=== PATIENT | female | born 1940 | race Hispanic/Latino ===

== ENCOUNTER 2017-09-15 23:26 | Observation (INO) | payer OTHER ==
[2017-09-16] MEDS ORDERED: cloNIDine HCl 0.1 MG TAB ONE (01:06)
[2017-09-16 01:45] LABS: Absolute Monocytes 0.9 K/uL (0.1-1.3); Absolute Neutrophil 7.6 K/uL (1.8-8.0); Basophils % 0.6 % (0-1.3); Eosinophils % 0.2 % (0-4.4); Hematocrit 44.4 % (36.0-45.0); Lymphocytes % 18.9 % (15.3-44.8); MCH 32.5 pg (27.0-35.0); MPV 10.7 fL (7.6-11.3); Monocytes % 8.8 % (3.3-12.3); RBC Red Blood Cell Count 4.58 M/uL (3.86-4.86)
[2017-09-16 02:29] LABS: Urine Blood TRACE (NEG); Urine Glucose NEGATIVE (NEG); Urine Protein 2+ (NEG)
[2017-09-16 03:32] LABS: Potassium 3.8 mEq/L (3.6-5.0)
[2017-09-16 03:35] LABS: Bilirubin Total 0.9 mg/dL (0.3-1.2); Protein, Total 7.4 g/dL (6.0-8.3)
[2017-09-16] MEDS ORDERED: ASPIRIN 325 MG TAB ONE (03:56)
[2017-09-16] MEDS ORDERED: HEPARIN 5000 UNIT/ML 1 ML VIAL ONE (04:03)
[2017-09-16] MEDS ORDERED: HEPARIN/D5W 25,000 UNIT/500 ML BAG IV ONE (04:03)
--- NOTE | 2017-09-16 04:08 | EDPHYS ---
Physician Documentation [facility] Name: Yumiko Joe Age: 77 yrs Sex: Female : 1940 Arrival Date: 09/15/2017 Time: 23:36 Bed 13 Private MD: ED Physician Kal Vamra HPI: 09/16 03:48 This 77 yrs old Female presents to ER via EMS with complaints of High Blood ps1 Pressure. 03:48 The patient has elevated blood pressure and discovered this at home. pt has long ps1 standing history of hypertension. Has clonidine that she is not taking from her doctor in the [place] and losartan 20mg bid from another doctor in [place]. She has not been feeling well over the last couple of days and started having intermittent chest pain and fatigue. EMS was called when she wasn't feeling well earlier and looked pale and diaphoretic. They stated that she was hypertensive in 210's systolic. . Historical: - Allergies: 09/15 23:40 No Known Allergies; bs1 - Home Meds: 23:40 losartan 50 mg oral tab 1 tab 2 times per day [Active]; bs1 - PMHx: 23:40 high blood pressure; bs1 - PSHx: 23:40 biopsy of cyst; bs1 - Immunization history:: Adult Immunizations up to date. - Social history:: Smoking status: Patient/guardian denies using tobacco. - Ebola Screening: : Patient reports travel to an Ebola-affected area in the 21 days before illness onset. Patient reports to have traveled to [place] 1 1/2 weeks ago. ROS: 09/16 03:50 Constitutional: Negative for fever, chills, and weight loss, Eyes: Negative for injury, ps1 pain, redness, and discharge, Neck: Negative for injury, pain, and swelling, Cardiovascular: Negative for chest pain, palpitations, and edema, Respiratory: Negative for shortness of breath, cough, wheezing, and pleuritic chest pain, Abdomen/GI: Negative for abdominal pain, nausea, vomiting, diarrhea, and constipation, MS/Extremity: Negative for injury and deformity, Skin: Negative for injury, rash, and discoloration, Neuro: Negative for headache, weakness, numbness, tingling, and seizure. Exam: 03:50 Constitutional: This is a well developed, well nourished patient who is awake, alert, ps1 and in no acute distress. Head/Face: Normocephalic, atraumatic. Eyes: Pupils equal round and reactive to light, extra-ocular motions intact. Lids and lashes normal. Conjunctiva and sclera are non-icteric and not injected. Chest/axilla: Normal chest wall appearance and motion. Nontender with no deformity. No lesions are appreciated. Cardiovascular: Regular rate and rhythm. No gallops, murmurs, or rubs. Normal PMI, no JVD. No pulse deficits. Respiratory: Lungs have equal breath sounds bilaterally, clear to auscultation and percussion. No rales, rhonchi or wheezes noted. No increased work of breathing, no retractions or nasal flaring. Abdomen/GI: Soft, non-tender, with normal bowel sounds. No distension or tympany. No guarding or rebound. No evidence of tenderness throughout. MS/ Extremity: Pulses equal, no cyanosis. Neurovascular intact. Full, normal range of motion. Neuro: Awake and alert, GCS 15, oriented to person, place, time, and situation. Cranial nerves II-XII grossly intact. Sensory grossly intact. 03:50 ECG was reviewed by the Attending Physician. ps1 Vital Signs: 09/15 23:42 BP 188 / 66 RA Supine (auto/lg); Pulse 69; Resp 13 S; Temp 99.0(O); Pulse Ox 98% on bs1 R/A; Weight 73.2 kg (M); Height 5 ft. 3 in. (160.02 cm) (R); Pain 0/10; 09/16 00:25 BP 189 / 84; Pulse 66; Resp 21; Pulse Ox 99% on R/A; bs1 00:33 BP 182 / 77; Pulse 66; Resp 17 S; Pulse Ox 99% on R/A; bs1 01:15 BP 176 / 88; Pulse 66; Resp 17; Pulse Ox 99% on R/A; bs1 02:15 BP 177 / 66; Pulse 61; Resp 16; Pulse Ox 96% on R/A; bs1 02:30 BP 158 / 65; Pulse 60; Resp 15 S; Pulse Ox 99% on R/A; bs1 03:30 BP 167 / 72; Pulse 66; Resp 16; Pulse Ox 96% on R/A; bs1 04:30 BP 161 / 72 RA Supine (auto/lg); Pulse 73; Resp 17; Temp 98.9(O); Pulse Ox 97% on R/A; bs1 09/15 23:42 Body Mass Index 28.59 (73.20 kg, 160.02 cm) bs1 MDM: 00:57 Patient medically screened. ps1 03:50 Data reviewed: vital signs, nurses notes, lab test result(s), EKG, radiologic studies. ps1 09/16 00:57 Order name: CBC with Diff; Complete Time: 01:58 ps1 09/16 00:57 Order name: CMP; Complete Time: 03:43 ps1 09/16 00:57 Order name: CXR XRAY ps1 09/16 00:57 Order name: Troponin (emerg Dept Use Only); Complete Time: 03:43 ps1 09/16 01:52 Order name: Urine Dipstick--Ancillary (enter results); Complete Time: 02:43 ms 09/16 00:57 Order name: Urine Dipstick-Ancillary (obtain specimen); Complete Time: 01:34 ps1 09/16 00:57 Order name: EKG - Nurse/Tech; Complete Time: 01:34 ps1 09/16 01:01 Order name: EKG; Complete Time: 01:02 bs1 EC:19 Rate is 67 beats/min. Rhythm is regular. QRS [place] is Normal. [place] interval is normal. QRS ps1 interval is normal. QT interval is normal. No Q waves. No ST changes noted. Clinical impression: NSR w/ Non-specific ST/T Changes. Interpreted by me. Administered Medications: 01:10 Drug: cloNIDine 0.1 mg Route: PO; bs1 04:53 Follow up: Response: No adverse reaction bs1 04:00 Drug: Aspirin 325 mg Route: PO; bs1 04:53 Follow up: Response: No adverse reaction bs1 04:15 Drug: Heparin ([place]-Bolus with thrombolytic) - HEParin 60 units/kg {Co-Signature: brett bs1 (Megan Fernandez RN).} Route: IVP; Site: left antecubital; 04:52 Follow up: Response: No adverse reaction bs1 04:19 Drug: Heparin ([place] Drip) 12 units/kg/hr - (HEParin 76183 units, D5W 500 ml) bs1 {Co-Signature: [email or web address] (eMgan Fernandez RN).} Route: IV; Rate: calculated rate; Site: left antecubital; 04:53 Follow up: IV Status: Infusion continued upon admission bs1 Disposition: 09/16/17 04:07 Hospitalization ordered by Claudia Edwards for Inpatient Admission. Preliminary diagnosis are Hypertension, Elevated troponin, Non-ST elevation (NSTEMI) myocardial infarction. - Bed requested for Telemetry/MedSurg (Inpatient). - Status is Inpatient Admission. bs1 - Condition is Fair. - Problem is new. - Symptoms have worsened. UTI on Admission? No Signatures: Dispatcher [employer] EDMS Kal Varma MD MD ps1 Jodi Virgen RN RN bs1 Megan Fernandez RN lk1 Corrections: (The following items were deleted from the chart) 03:51 03:48 pt has long standing history of hypertension. Has clonidine that she is not ps1 taking from her doctor in the [place] and losartan 20mg bid from another doctor in [place]. She has not been feeling well over the last couple of days and started having intermittent chest pain and fatigue. EMS was called when she wasn't feeling well earlier and looked pale. They stated that she was hypertensive. . ps1 04:07 04:07 Hospitalization Ordered by Claudia Edwards MD for Inpatient Admission. Preliminary ps1 diagnosis is Hypertension; Elevated troponin. Bed requested for Telemetry/MedSurg (Inpatient). Status is Inpatient Admission. Condition is Fair. Problem is new. Symptoms have worsened. UTI on Admission? No. ps1 04:09 04:07 09/16/2017 04:07 Hospitalization Ordered by Claudia Edwards MD for Inpatient bs1 Admission. Preliminary diagnosis is Hypertension; Elevated troponin; Non-ST elevation (NSTEMI) myocardial infarction. Bed requested for Telemetry/MedSurg (Inpatient). Status is Inpatient Admission. Condition is Fair. Problem is new. Symptoms have worsened. UTI on Admission? No. ps1 04:56 04:09 09/16/2017 04:07 Hospitalization Ordered by Claudia Edwards MD for Inpatient bs1 Admission. Preliminary diagnosis is Hypertension; Elevated troponin; Non-ST elevation (NSTEMI) myocardial infarction. Bed requested for Telemetry/MedSurg (Inpatient). Status is Inpatient Admission. Condition is Fair. Problem is new. Symptoms have worsened. UTI on Admission? No. bs1
--- NOTE | 2017-09-16 04:08 | ER ---
Nurse's Notes [facility] Name: Yumiko Joe Age: 77 yrs Sex: Female : 1940 Arrival Date: 09/15/2017 Time: 23:36 Bed 13 Private MD: Diagnosis: Hypertension;Elevated troponin;Non-ST elevation (NSTEMI) myocardial infarction Presentation: 09/15 23:37 Presenting complaint: EMS states: "Patient reports feeling shaky since last night and bs1 continued throughout the day, patient on scene was pale, diaphoretic, blood pressure 210/130. BG 130, patient has been sinus rhythm.". Transition of care: patient was not received from another setting of care. Onset of symptoms was September 14, 2017. Risk Assessment: Do you want to hurt yourself or someone else? Patient reports no desire to harm self or others. Initial Sepsis Screen: Does the patient meet any 2 criteria? No. Patient's initial sepsis screen is negative. Does the patient have a suspected source of infection? No. Patient's initial sepsis screen is negative. Care prior to arrival: IV initiated. 20 GA, in the left antecubital area, Glucose check: 130. 23:37 Method Of Arrival: EMS: [facility] bs1 23:37 Acuity: CLAUDIA 3 bs1 Triage Assessment: 09/16 00:28 General: See Nurse's assessment. bs1 Historical: - Allergies: 09/15 23:40 No Known Allergies; bs1 - Home Meds: 23:40 losartan 50 mg oral tab 1 tab 2 times per day [Active]; bs1 - PMHx: 23:40 high blood pressure; bs1 - PSHx: 23:40 biopsy of cyst; bs1 - Immunization history:: Adult Immunizations up to date. - Social history:: Smoking status: Patient/guardian denies using tobacco. - Ebola Screening: : Patient reports travel to an Ebola-affected area in the 21 days before illness onset. Patient reports to have traveled to [place] 1 1/2 weeks ago. Screenin:41 Abuse screen: Denies threats or abuse. Denies injuries from another. Nutritional bs1 screening: No deficits noted. Tuberculosis screening: No symptoms or risk factors identified. Fall Risk No fall in past 12 months (0 pts). No secondary diagnosis (0 pts). IV access (20 points). Ambulatory Aid- Crutches/Cane/Walker (15 pts). Gait- Weak (10 pts.). Mental Status- Oriented to own ability (0 pts). Total Truong Fall Scale indicates Low Risk Score (25-44 pts). Fall prevention measures have been instituted. Side Rails Up X 2 Placed close to Nursing Station Frequent Obs/Assesments occuring Family Present and informed to notify staff if they need to leave bedside As available Patient and Family Educated on Fall Prevention Program and strategies. Assessment: 23:48 General: Appears uncomfortable, Behavior is cooperative, anxious. Pain: Denies pain. bs1 Neuro: Level of Consciousness is awake, alert, obeys commands, Oriented to person, place, time, Reports feeling shaky since yesterday. Cardiovascular: Denies chest pain, shortness of breath, Heart tones S1 S2 present Capillary refill < 3 seconds Patient's skin is warm and dry. Respiratory: Airway is patent Trachea midline Respiratory effort is even, unlabored, Respiratory pattern is regular, symmetrical, Breath sounds are clear bilaterally. GI: Abdomen is round non-distended, Bowel sounds present X 4 quads. : No deficits noted. No signs and/or symptoms were reported regarding the genitourinary system. EENT: No deficits noted. No signs and/or symptoms were reported regarding the EENT system. Derm: Skin is intact, Skin is pink, warm \\T\\ dry. Musculoskeletal: Circulation, motion, and sensation intact. Capillary refill < 3 seconds, Range of motion: intact in all extremities. 09/16 00:45 Reassessment: No changes from previously documented assessment. Patient and/or family bs1 updated on plan of care and expected duration. Pain level reassessed. Patient is alert, oriented x 3, equal unlabored respirations, skin warm/dry/pink. Family at bedside. 02:00 Reassessment: Patient appears in no apparent distress at this time. Patient and/or bs1 family updated on plan of care and expected duration. Pain level reassessed. Patient is alert, oriented x 3, equal unlabored respirations, skin warm/dry/pink. Blood pressure decreased after clonidine. Family at bedside. No further needs at this time. 03:00 Reassessment: Patient appears in no apparent distress at this time. Patient and/or bs1 family updated on plan of care and expected duration. Pain level reassessed. Patient is alert, oriented x 3, equal unlabored respirations, skin warm/dry/pink. 04:19 Reassessment: Heparn Drip started at 17.6ml/hr. bs1 04:54 Reassessment: Patient and/or family updated on plan of care and expected duration. Pain bs1 level reassessed. Patient is alert, oriented x 3, equal unlabored respirations, skin warm/dry/pink. Patient being admitted to 4th floor. Inpatient. Patient in no apparent distress. Denies chest pain. Blood pressure decreased. Vital Signs: 09/15 23:42 BP 188 / 66 RA Supine (auto/lg); Pulse 69; Resp 13 S; Temp 99.0(O); Pulse Ox 98% on bs1 R/A; Weight 73.2 kg (M); Height 5 ft. 3 in. (160.02 cm) (R); Pain 0/10; 09/16 00:25 BP 189 / 84; Pulse 66; Resp 21; Pulse Ox 99% on R/A; bs1 00:33 BP 182 / 77; Pulse 66; Resp 17 S; Pulse Ox 99% on R/A; bs1 01:15 BP 176 / 88; Pulse 66; Resp 17; Pulse Ox 99% on R/A; bs1 02:15 BP 177 / 66; Pulse 61; Resp 16; Pulse Ox 96% on R/A; bs1 02:30 BP 158 / 65; Pulse 60; Resp 15 S; Pulse Ox 99% on R/A; bs1 03:30 BP 167 / 72; Pulse 66; Resp 16; Pulse Ox 96% on R/A; bs1 04:30 BP 161 / 72 RA Supine (auto/lg); Pulse 73; Resp 17; Temp 98.9(O); Pulse Ox 97% on R/A; bs1 09/15 23:42 Body Mass Index 28.59 (73.20 kg, 160.02 cm) bs1 ED Course: 09/15 23:36 Patient arrived in ED. bs1 23:39 Triage completed. bs1 23:45 No provider procedures requiring assistance completed. Maintain EMS IV. Dressing bs1 intact. Good blood return noted. Site clean \\T\\ dry. Gauge \\T\\ site: 20 G left AC. 23:48 Jodi Virgen, RN is Primary Nurse. bs1 23:48 Patient has correct armband on for positive identification. Placed in gown. Bed in low bs1 position. Call light in reach. Side rails up X 1. cable splicer apprentice on. Pulse ox on. NIBP on. 09/16 00:26 Patient placed in an exam room, on a stretcher. bs1 00:41 Kal Varma MD is Attending Physician. ps1 01:11 X-ray completed. Portable x-ray completed in exam room. Patient tolerated procedure kw well. 01:12 CXR XRAY In Process Unspecified. EDMS 04:06 Kal Varma MD is Hospitalizing Provider. ps1 04:06 Claudia Edwards MD is Hospitalizing Provider. ps1 04:52 Patient admitted, IV remains in place. intact. bs1 Administered Medications: 01:10 Drug: cloNIDine 0.1 mg Route: PO; bs1 04:53 Follow up: Response: No adverse reaction bs1 04:00 Drug: Aspirin 325 mg Route: PO; bs1 04:53 Follow up: Response: No adverse reaction bs1 04:15 Drug: Heparin ([place]-Bolus with thrombolytic) - HEParin 60 units/kg {Co-Signature: [email or web address] bs1 (Megan Fernandez RN).} Route: IVP; Site: left antecubital; 04:52 Follow up: Response: No adverse reaction bs1 04:19 Drug: Heparin ([place] Drip) 12 units/kg/hr - (HEParin 09988 units, D5W 500 ml) bs1 {Co-Signature: lk1 (Megan Fernandez RN).} Route: IV; Rate: calculated rate; Site: left antecubital; 04:53 Follow up: IV Status: Infusion continued upon admission bs1 Outcome: 04:07 Decision to Hospitalize by Provider. ps1 04:51 Admitted to Tele accompanied by nurse, accompanied by tech, via stretcher, room 402, bs1 with chart, Report called to MARTY Parrish 04:51 Condition: stable 04:51 Instructed on the need for admit, Demonstrated understanding of instructions. 04:56 Patient left the ED. bs1 Signatures: [facility] Berna Adame Kal Varma MD MD ps1 Jodi Virgen RN RN bs1 Megan Fernandez RN lk1 Corrections: (The following items were deleted from the chart) 09/15 23:59 23:42 BP 188 / 66 Supine Auto R Arm Large; Pulse 69bpm; Resp 13bpm; Spontaneous; Pulse bs1 Ox 98% RA; 80.74 kg; Height 5 ft. 3 in. Reported; BMI: 31.5; Pain 0/10; bs1 09/16 04:22 09/15 23:42 BP 188 / 66 Supine Auto R Arm Large; Pulse 69bpm; Resp 13bpm; Spontaneous; bs1 Pulse Ox 98% RA; Temp 99.0F Oral; 80.74 kg; Height 5 ft. 3 in. Reported; BMI: 31.5; Pain 0/10; bs1
[2017-09-16] MEDS ORDERED: ONDANSETRON 4 MG/2 ML VIAL IV PRN (04:12)
[2017-09-16] MEDS ORDERED: MORPHINE 4 MG/ML SYR IV PRN (04:12)
[2017-09-16] MEDS ORDERED: ACETAMINOPHEN 500 MG TAB PO PRN (04:12)
[2017-09-16] MEDS ORDERED: MAGNESIUM HYDROXIDE 8% 30 ML PO PRN (04:12)
[2017-09-16] MEDS ORDERED: ENOXAPARIN 60 MG/0.6 ML SQ SCH (05:00)
--- NOTE | 2017-09-16 06:42 | EKG ---
Test Date: 2017-09-16 Test Time: 01:19:19 Apple Packing Header: MAYKEL MEASUREMENT RESULTS: Intervals: Rate: 67 SC: 188 QRSD: 72 QT: 406 QTc: 429 [place]: P: 29 SC: 188 QRS: 8 T: 45 INTERPRETIVE STATEMENTS: Normal sinus rhythm Nonspecific ST abnormality Abnormal ECG Compared to ECG 01/08/2013 17:43:01 ST (T wave) deviation now present Electronically Signed On 09-16-17 06:42:03 CDT by Elieser Garnett
[2017-09-16] MEDS ORDERED: cloNIDine HCl 0.1 MG TAB PO ONE (07:26)
--- NOTE | 2017-09-16 07:33 | P.HP ---
Certification for Inpatient Patient admitted to: Inpatient With expected LOS: >2 Midnights Patient will require the following post-hospital care: None Practitioner: I am a practitioner with admitting privileges, knowledge of patient current condition, hospital course, and medical plan of care. Services: Services provided to patient in accordance with Admission requirements found in Title 42 Section 412.3 of the Code of Federal Regulations Patient History Date of Service: 09/16/17 Reason for admission: Non ST-elevation myocardial infarction History of Present Illness: Patient is a 77-year-old female came to the hospital with chest pain. Pain radiated to the left arm. Patient was in town visiting her family. She lives in [place] in gets most of her care there. While she was staying with her [id number] she went to see a doctor that practiced alternative medicine. She was started on a Tea which was supposedly going to get rid of a lot of the toxins in Mrs. Joe' body. The couple of days after taking the "Tea", patient started having the chest pain. Patient's [id number] brought her to the hospital for evaluation. In the emergency room patient's blood pressure was significantly elevated. Patient's troponin were mildly elevated as well. Patient be admitted to the hospital to be ruled out for acute coronary syndrome. Will do serial troponins and EKG in get Cardiology consultation. Continue on anti coagulation, anti-platelet therapy, statin therapy, and will do an echocardiogram. Patient will be admitted to the hospital for further evaluation. Allergies No Known Allergies Allergy (Unverified 09/16/17 04:40) - Past Medical/Surgical History Has patient received pneumonia vaccine in the past: No Diabetic: No -: HTN -: gastritis -: anxiety -: hysterectomy -: hernia repair - Family History Father Family History: Reviewed- Non-Contributory - Social History Smoking Status: Never smoker Alcohol use: No CD- Drugs: No Caffeine use: No Place of Residence: Home Review of Systems 10-point ROS is otherwise unremarkable Physical Examination - Vital Signs Temperature: 98.2 F Blood Pressure: 211/92 Pulse: 68 Respirations: 20 Pulse Ox (%): 95 - Physical Exam General: Alert, In no apparent distress, Oriented x3 HEENT: Atraumatic, PERRLA, Mucous membr. moist/pink, EOMI, Sclerae nonicteric Neck: Supple, 2+ carotid pulse no bruit, No LAD, Without JVD or thyroid abnormality Respiratory: Clear to auscultation bilaterally, Normal air movement Cardiovascular: Regular rate/rhythm, Normal S1 S2, No gallops, No murmurs Gastrointestinal: Normal bowel sounds, Soft and benign, Non-distended, No tenderness Musculoskeletal: No clubbing, No swelling, No tenderness Integumentary: No rashes Neurological: Normal gait, Normal speech, Normal strength at 5/5 x4 extr, Normal tone, Sensation intact, Cranial nerves 3-12 intact, Normal affect Lymphatics: No axilla or inguinal lymphadenopathy - Studies Laboratory Data (last 24 hrs) 09/16/17 03:05: Sodium 139, Potassium 3.8, BUN 17, Creatinine 0.76, Glucose 135 H, Total Bilirubin 0.9, AST 42, ALT 53, Alkaline Phosphatase 49 09/16/17 01:27: WBC 10.7, Hgb 14.9, Hct 44.4, Plt Count 195 Assessment & Plan - Problems (Diagnosis) (1) Non-STEMI (non-ST elevated myocardial infarction) Current Visit: Yes Status: Acute (2) Hypertensive urgency Current Visit: Yes Status: Acute (3) History of hyperlipidemia Current Visit: Yes Status: Acute - Plan Plan: 1. Serial troponins and EKG 2. Cardiology consultation 3. Echocardiogram and further intervention per cardiology; NPO for now 4. Anti-platelet therapy, anti coagulation, beta-charles, statin, and O2 as needed 5. IV morphine for pain 6. Nitro p.r.n. 7. Strict blood pressure control 8. GI and DVT prophylaxis Discharge Plan: Home Plan to discharge in: Greater than 2 days - Advance Directives Does patient have a Living Will: No Does patient have a Durable POA for Healthcare: No - Code Status/Comfort Care Code Status Assessed: Yes Code Status: Full Code Critical Care: No Time Spent Managing PTS Care (In Minutes): 50
--- NOTE | 2017-09-16 07:40 | RAD REPORT ---
EXAM DESCRIPTION: [place] Single View09/16/2017 1:12 am CLINICAL HISTORY: Chest pain COMPARISON: 2012 FINDINGS: A calcified granulomas present within the right lung. The lungs appear clear of acute infi ltrate. The heart is normal size IMPRESSION: No acute abnormalities displayed
[2017-09-16] MEDS ORDERED: HEPARIN/D5W 25,000 UNIT/500 ML BAG IV SCH (08:00)
[2017-09-16] MEDS ORDERED: PNEUMOCOCCAL VACCINE 0.5 ML IMVAC ONE (08:00)
[2017-09-16] MEDS: VALSARTAN 80 MG TAB PO SCH ×2 (08:31→20:56)
[2017-09-16] MEDS: ASPIRIN 325 MG TAB PO SCH (08:31)
[2017-09-16] MEDS: METOPROLOL TAR 50 MG TAB PO SCH ×2 (08:31→20:57)
[2017-09-16 08:32] LABS: CKMB Creatine Kinase MB 3.7 ng/ml (0.3-4.0)
[2017-09-16] MEDS: ENOXAPARIN 60 MG/0.6 ML SQ SCH ×2 (08:36→20:55)
--- NOTE | 2017-09-16 10:21 | P.PN ---
Subjective Date of Service: 09/16/17 Primary Care Provider: Dr. Clay([facility]) Chief Complaint: Non ST-elevation myocardial infarction Subjective: Doing well (Patient doing well. She is without any chest pain.) Physical Examination - Vital Signs Temperature: 98.4 F Blood Pressure: 180/80 Pulse: 73 Respirations: 18 Pulse Ox (%): 95 - Physical Exam General: Alert, In no apparent distress, Oriented x3, Cooperative HEENT: Atraumatic Neck: Supple Respiratory: Clear to auscultation bilaterally, Normal air movement Cardiovascular: Normal pulses, Regular rate/rhythm Gastrointestinal: Normal bowel sounds, Soft and benign, Non-distended, No tenderness, No masses, No rebound, No guarding Musculoskeletal: No erythema, No tenderness, No warmth Integumentary: No erythema, No warmth, No cyanosis Neurological: Normal speech, Normal strength at 5/5 x4 extr, Normal tone, Normal affect - Studies Laboratory Data (last 24 hrs) 09/16/17 03:05: Sodium 139, Potassium 3.8, BUN 17, Creatinine 0.76, Glucose 135 H, Total Bilirubin 0.9, AST 42, ALT 53, Alkaline Phosphatase 49 09/16/17 01:27: WBC 10.7, Hgb 14.9, Hct 44.4, Plt Count 195 Medications List Reviewed: Yes Assessment & Plan - Problems (Diagnosis) (1) Hypertension Current Visit: Yes Status: Chronic Plan: Blood pressure medication added for better control. Await cardiology evaluation as the patient presented with non ST wave KS. Anticipate that the patient will likely require intervention. Qualifiers: Hypertension type: essential hypertension Qualified Code(s): I10 - Essential (primary) hypertension (2) Depression Current Visit: Yes Status: Chronic Plan: Will continue with her medication. Qualifiers: Depression Type: unspecified Qualified Code(s): F32.9 - Major depressive disorder, single episode, unspecified (3) History of hyperlipidemia Current Visit: Yes Status: Chronic Plan: Continue with medication. Will check fasting lipid panel. (4) Hypertensive urgency Onset Date: 09/16/17 Current Visit: Yes Status: Acute Plan: Blood pressure better controlled. Will continue with current medication. Will monitor and adjust appropriately. (5) Non-STEMI (non-ST elevated myocardial infarction) Onset Date: 09/16/17 Current Visit: Yes Status: Acute Plan: Continue current medication. Cardiology to evaluate. Patient will likely need cardiac intervention. Await recommendations. Discharge Plan: Home Plan to discharge in: 48 Hours Time Spent Managing Pts Care (In Minutes): 55
[2017-09-16] MEDS ORDERED: POTASSIUM CL SA 10 MEQ TAB PO ONE (12:00)
--- NOTE | 2017-09-16 13:18 | ECHO ---
HEIGHT: 5 ft 4 in WEIGHT: 161 lb 6.4 oz DATE OF STUDY: 09/16/[address]: Claudia Edwards MD 2-DIMENSIONAL: YES M.MODE: YES DOPPLER: YES COLOR FLOW: YES TDS: PORTABLE: DEFINITY: BUBBLE STUDY: DIAGNOSIS: NSTEMI CARDIAC HISTORY: CATHERIZATION: NO SURGERY: NO PROSTHETIC VALVE: NO PACEMAKER: NO MEASUREMENTS (cm) DIASTOLIC (NORMALS) SYSTOLIC (NORMALS) IVSd 1.3 (0.6-1.2) LA Diam 3.2 (1.9-4.0) LVEF 61% LVIDd 3.7 (3.5-5.7) LVIDs 2.5 (2.0-3.5) %FS 32% LVPWd 1.2 (0.6-1.2) Ao Diam 2.7 (2.0-3.7) 2 DIMENSIONAL ASSESSMENT: RIGHT ATRIUM: NORMAL LEFT ATRIUM: NORMAL RIGHT VENTRICLE: NORMAL LEFT VENTRICLE: LEFT VENTRICULAR HYPERTROPHY TRICUSPID VALVE: NORMAL MITRAL VALVE: MITRAL ANNULAR CALCIFICATION PULMONIC VALVE: NORMAL AORTIC VALVE: SCLEROSIS PERICARDIAL EFFUSION: NONE AORTIC ROOT: NORMAL LEFT VENTRICULAR WALL MOTION: NORMAL DOPPLER/COLOR FLOW: MILD AORTIC AND TRICUSPID REGURGITATION COMMENTS: 1, MILD AORTIC AND TRICUSPID REGURGITATION. 2, LEFT VENTRICULAR HYPERTROPHY. 3, NORMAL EJECTION FRACTION. 4 MITRAL ANNULAR CALCIFICATION. 5, AORTIC SCLEROSIS. 6, NO EFFUSION. TECHNOLOGIST: DRISS STARKS
[2017-09-16 17:59] LABS: CKMB Creatine Kinase MB 3.4 ng/ml (0.3-4.0)
--- NOTE | 2017-09-16 20:34 | CON ---
Date of Consultation: 09/16/[address] Rock' service on 09/16/2017. I saw the patient on 09/16/2017. Reason For Consultation: Abnormal troponin and hypertensive crisis. History Of Present Illness: Ms. Joe is a 77-year-old Latin-[place]ib[place] woman. She lives in [place], [place], in the [place]. She has family here. She has been complaining of not feeling very well lat tat[place], came in with a blood pressure of 211/92, was found to have a troponin of 0.13. Denied any chest pain during this admission, but apparently has had some shortness of breath and chest pain over the last few months. Denied any nausea, vomiting, diaphoresis, PND, orthopnea, pedal edema, palpitations , or syncope. Past Medical History: Positive for hypertension, gastroesophageal reflux disease, and depression. S he also has a history of dyslipidemia. Review of Systems: Negative. Social History: Negative. Family History: Negative. Medications: At home include clonidine, losartan, Prilosec, Zoloft, and trazodone. Apparently, rece ntjuliana was started on losartan, at which time, she quit the clonidine. Physical Examination: General: She appeared her stated age, moderately obese. HEENT: Negative. Vital Signs: Stable. Blood pressure systolic was 180. HEENT: Negative. Neck: Supple with no bruit. Chest: Clear. Cardiac: Revealed a regular rhythm and rate with an S4 gallops. Abdomen: Obese, but benign. Extremities: Revealed trace edema. Diagnostic Data: The troponin was 0.13. The rest of it were all normal. EKG was positive for LVH. Chest x-ray is negative. Impression And Plan: I think her symptoms of shortness of breath and chest pain and not feeling well are secondary to rebound hypertension from stopping the clonidine. I will resume the clonidine. I will continue the losartan. She is also on metoprolol right now. Blood pressure is still not very w ell controlled. to do any enquiry into the cardiac workup. I think it is treated medical ly for now. We will see what her echocardiogram shows. We will consider catheterization if her symp toms reoccur, but I would like her after she does goes home to have an outpatient Lexiscan and I will make an arrangement for that. The case was discussed with . She does have dyslipidem ia that is not treated and we may want to follow up on that. The case was discussed with her family as well. She could probably go home tomorrow and I will see her as an outpatient. CRYSTAL Voice ID: [id number] Report ID: [id number]
[2017-09-16] MEDS ORDERED: cloNIDine HCl 0.1 MG TAB PO SCH (21:00)
[2017-09-16] MEDS ORDERED: ATORVASTATIN 20 MG TAB PO SCH (21:00)
[2017-09-17] MEDS ORDERED: cloNIDine HCl 0.1 MG TAB PO ONE (04:03)
[2017-09-17 06:33] LABS: Absolute Lymphocytes (CBC) 1.8 K/uL (0.7-4.9); Absolute Monocytes 0.6 K/uL (0.1-1.3); Absolute Neutrophil 4.3 K/uL (1.8-8.0); Basophils % 0.5 % (0-1.3); Eosinophils % 0.7 % (0-4.4); Hematocrit 42.7 % (36.0-45.0); Lymphocytes % 26.1 % (15.3-44.8); MCH 32.6 pg (27.0-35.0); MCV 97.1 fL (80-100); MPV 10.4 fL (7.6-11.3); Monocytes % 8.4 % (3.3-12.3); RBC Red Blood Cell Count 4.39 M/uL (3.86-4.86)
[2017-09-17 06:54] LABS: Magnesium 2.1 mg/dL (1.8-2.5)
[2017-09-17] MEDS ORDERED: SERTRALINE HCL 50 MG TAB PO SCH (09:00)
[2017-09-17] MEDS ORDERED: cloNIDine HCl 0.1 MG TAB PO SCH (09:00)
[2017-09-17] MEDS: METOPROLOL TAR 50 MG TAB PO SCH (09:00)
[2017-09-17] MEDS: ENOXAPARIN 60 MG/0.6 ML SQ SCH (09:26)
[2017-09-17] MEDS: ASPIRIN 325 MG TAB PO SCH (09:29)
[2017-09-17] MEDS: VALSARTAN 80 MG TAB PO SCH (09:29)
[2017-09-17] MEDS ORDERED: FENTANYL CITR 100 MCG/2 ML ONE (11:39)
[2017-09-17] MEDS ORDERED: ONDANSETRON HCL 40 MG/20 ML VIAL ONE (11:39)
[2017-09-17] MEDS ORDERED: PROPOFOL 200 MG/20 ML VIAL IV ONE (11:39)
[2017-09-17] MEDS ORDERED: MIDAZOLAM HCL 2 MG/2 ML INJ ONE (11:39)
--- NOTE | 2017-09-17 12:26 | PN ---
Date of Progress Note: 09/17/2017 Subjective: Ms. Joe was seen yesterday because of atypical chest pain, hypertensive crisis, med ication was adjusted. She is on clonidine, metoprolol and her blood pressure is much better today. No chest pain. No EKG changes. No telemetry issues overnight. I would continue her present regimen . She can go home on her present regimen. She does not have a local MD. I will be happy to see her in the office in a week or 2. I will do an outpatient Cardiolite on her. She can go home whenever it is okay with Dr. Rock. RAVEN/EARL Voice ID: [id number] Report ID: [id number]
--- NOTE | 2017-09-17 12:43 | P.DS ---
Admission Date: 09/16/17 Discharge Date: 09/17/17 Primary Care Provider: Dr. Clay([facility]) Disposition: ROUTINE DISCHARGE Discharge Condition: GOOD Reason for Admission: Non ST-elevation myocardial infarction Consultations: Cardiology-Dr. Patricia - Problems (1) Hypertension Current Visit: Yes Status: Chronic Qualifiers: Hypertension type: essential hypertension Qualified Code(s): I10 - Essential (primary) hypertension (2) Depression Current Visit: Yes Status: Chronic Qualifiers: Depression Type: unspecified Qualified Code(s): F32.9 - Major depressive disorder, single episode, unspecified (3) History of hyperlipidemia Onset Date: 09/16/17 Current Visit: Yes Status: Chronic (4) Hypertensive urgency Onset Date: 09/16/17 Current Visit: Yes Status: Acute (5) Non-STEMI (non-ST elevated myocardial infarction) Onset Date: 09/16/17 Current Visit: Yes Status: Acute Brief History of Present Illness: 77-year-old female presented to ER with chest pain. Patient had elevated blood pressures. She is visiting in the area. Patient previously taking clonidine. There was some adjustments in her medication recently. On initial evaluation troponin was elevated suspicious for non ST wave AL. Hospital Course: During the course of her stay patient was evaluated by cardiology. Echocardiogram unremarkable. Patient presented with chest pain. Patient suspected having non ST wave AL. Elevation in her troponin likely related to uncontrolled hypertension. Blood pressure medications were adjusted. Patient with hypertension. Cardiology recommended no intervention at this time. At discharge patient will continue with aspirin 325 mg daily, Lipitor 80 mg once daily, clonidine 0.1 mg 1 pill twice daily, metoprolol 50 mg 1 pill twice daily , Diovan 80 mg 1 pill twice daily. New medications includes metoprolol and Diovan. Clonidine has been increased to twice daily. She was previously taking once daily medication. She is to monitor her blood pressures daily. Recommendation is to maintain blood pressures less 150/80. Further adjustment can be done by her PCP or cardiology. Patient plans to follow up with cardiology within the next 1-2 weeks. Cardiology recommends cardiac stress test to be done as an outpatient. Patient has depression. Patient may continue with Zoloft 50 mg 1 pill once daily. Vital Signs/Physical Exam: Temp Pulse Resp BP Pulse Ox 97 F 66 16 137/59 L 95 09/17/17 11:41 09/17/17 11:41 09/17/17 11:41 09/17/17 11:41 09/17/17 11:41 General: Alert, In no apparent distress, Oriented x3, Cooperative HEENT: Atraumatic, Mucous membr. moist/pink Neck: Supple Respiratory: Clear to auscultation bilaterally, Normal air movement Cardiovascular: Normal pulses, Regular rate/rhythm Gastrointestinal: Normal bowel sounds, Soft and benign, Non-distended, No tenderness, No masses, No rebound, No guarding Musculoskeletal: No erythema, No tenderness, No warmth Integumentary: No tenderness/swelling, No erythema, No warmth, No cyanosis Neurological: Normal speech, Normal strength at 5/5 x4 extr, Normal tone Laboratory Data at Discharge: WBC 6.7 K/uL (4.3-10.9) D 09/17/17 06:04 Hgb 14.3 g/dL (12.0-15.0) 09/17/17 06:04 Hct 42.7 % (36.0-45.0) 09/17/17 06:04 Plt Count 175 K/uL (152-406) 09/17/17 06:04 APTT 85.3 SECONDS (24.3-36.9) H 09/16/17 07:45 Sodium 138 mEq/L (135-145) 09/17/17 06:04 Potassium 4.0 mEq/L (3.6-5.0) 09/17/17 06:04 BUN 14 mg/dL (6-20) 09/17/17 06:04 Creatinine 0.79 mg/dL (0.44-1.00) 09/17/17 06:04 Glucose 128 mg/dL (65-120) H 09/17/17 06:04 Phosphorus 3.0 mg/dL (2.5-4.3) 09/17/17 06:04 Magnesium 2.1 mg/dL (1.8-2.5) 09/17/17 06:04 Total Bilirubin 0.9 mg/dL (0.3-1.2) 09/16/17 03:05 AST 42 IU/L (10-42) 09/16/17 03:05 ALT 53 IU/L (10-60) 09/16/17 03:05 Alkaline Phosphatase 49 IU/L (42-121) 09/16/17 03:05 Troponin I 0.19 ng/mL (<0.03) H 09/16/17 14:25 Triglycerides 69 mg/dL (35-160) 09/16/17 06:55 Cholesterol 162 mg/dL (<200) 09/16/17 06:55 HDL Cholesterol 48 mg/dL (29-89) 09/16/17 06:55 Cholesterol/HDL Ratio 3.38 09/16/17 06:55 Home Medications: Omeprazole [Prilosec] 40 mg PO DAILY 09/16/17 Sertraline [Zoloft*] 50 mg PO DAILY 09/16/17 Aspirin Tab [Efra Aspirin*] 325 mg PO DAILY #90 tab 09/17/17 Atorvastatin Calcium [Lipitor*] 80 mg PO BEDTIME #90 tab 09/17/17 Clonidine HCl [Catapres*] 0.1 mg PO BID #60 tab 09/17/17 Metoprolol Tartrate [Lopressor*] 50 mg PO BID #60 tab 09/17/17 Valsartan [Diovan] 80 mg PO BID #60 tablet 09/17/17 New Medications: Aspirin Tab [Efra Aspirin*] 325 mg PO DAILY #90 tab Atorvastatin Calcium [Lipitor*] 80 mg PO BEDTIME #90 tab Clonidine HCl [Catapres*] 0.1 mg PO BID #60 tab Metoprolol Tartrate [Lopressor*] 50 mg PO BID #60 tab Valsartan [Diovan] 80 mg PO BID #60 tablet Patient Discharge Instructions: 1. Patient will need to follow up with a PCP follow up this hospitalization within 1 week. 2. Patient presented with chest pain and elevated blood pressure. Patient has hypertension. Patient had non ST wave AL. Patient evaluated by Cardiology. Medications have been adjusted. At discharge new medications include clonidine 0.1 mg 1 pill twice daily, Diovan 80 mg 1 pill twice daily, metoprolol 50 mg 1 pill twice daily. Patient will continue with aspirin 325 mg once daily. Patient will also continue with Lipitor 80 mg 1 pill daily. Recommendations for the patient follow up with cardiology within 1 week. Patient will need cardiac evaluation at that time. 2. Patient has a history of GERD. She may continue with her medication. 3. Patient has depression. She may continue with Zoloft daily. Diet: AHA Activity: Fall precautions Time spent managing pt's care (in minutes): 55
== END 2017-09-17 13:30 | disposition home or self-care (01) ==
LOC: ER 23:26 → ERHOLD 09-16 04:09 → INTOOBSV 09-16 04:09 → 4TH 09-16 04:46
PROVIDERS: ADMIT Hospitalist; ATTEND Family Medicine
DX: I21.4 Non-ST elevation (NSTEMI) myocardial infarction (principal); I16.0 Hypertensive urgency; F41.9 Anxiety disorder, unspecified; E78.5 Hyperlipidemia, unspecified; F32.9 Major depressive disorder, single episode, unspecified
CPT/HCPCS: 36415 ×2; 71045; 80048; 80053; 80061; 81003; 82550 ×2; 82553 ×2; 83735; 84100; 84443; 84484 ×3; 85025 ×2; 85730; 93005; 93306; 96365; 97163; 99285; G0378 ×2; J1644; J1650 ×2; J2250; J2405; J3010

== ENCOUNTER 2024-04-24 17:41 | Inpatient (IN) | payer OTHER ==
--- NOTE | 2024-04-24 20:00 | RAD REPORT ---
Abdomen Exam Limited: 04/24/2024 7:45 PM CLINICAL HISTORY: ABD PAIN STUDY: Limited right upper quadrant ultrasound of abdomen. COMPARISON: None. FINDINGS: Liver: Limited evaluation. Probable hepatic steatosis. Bile ducts: Dilated common bile duct Common bile duct measures 8 mm. Gallbladder: Gallbladder is contracted. No gallbladder wall thickening. Gallstones are present. A son ographic Flores sign was reported. IMPRESSION: Cholelithiasis with sonographic Flores sign reported. No gallbladder wall thickening, pericholecystic fluid, or gallbladder distention. The exam is equivocal for acute cholecystitis.
[2024-04-24 20:24] LABS: Absolute Lymphocytes (CBC) 1.7 K/uL (0.7-4.9); Absolute Monocytes 0.9 K/uL (0.1-1.3); Basophils % 0.9 % (0-1.3); Eosinophils % 0.6 % (0-4.4); Hematocrit 43.1 % (36.0-45.0); Hemoglobin 14.5 g/dL (12.0-15.0); Lymphocytes % 36.3 % (15.3-44.8); MCH 33.3 pg (27.0-35.0); MCHC 33.5 g/dL (32.0-36.0); MCV 99.5 fL (80-100); MPV 8.8 fL (7.6-11.3); Monocytes % 18.6 % (3.3-12.3); Neutrophils % 43.6 % (41.7-73.7); Nucleated Red Blood Cells % 0.2 % (0-0); Platelets 137 thou/uL (152-406); RBC Red Blood Cell Count 4.33 M/uL (3.86-4.86); Red Cell Distribution Width 13.8 % (12.1-15.2)
[2024-04-24] MEDS ORDERED: NA CHLORIDE 0.9% 1,000 ML ONE ×2 (20:37→23:51)
[2024-04-24] MEDS ORDERED: ONDANSETRON 4 MG/2 ML VIAL ONE (20:37)
[2024-04-24] MEDS ORDERED: MORPHINE 4 MG/ML SYR ONE (20:37)
[2024-04-24 20:42] LABS: Albumin 3.2 g/dL (3.4-5.0); Albumin/Globulin Ratio 0.7 (1.1-1.8); Anion Gap 9.9 mEq/L (5.0-15.0); Bilirubin Total 0.3 mg/dL (0.2-1.0); Globulin 4.3 g/dL (2.3-3.5); Potassium 3.9 mEq/L (3.5-5.1); Protein, Total 7.5 g/dL (6.4-8.2)
--- NOTE | 2024-04-24 21:09 | ER ---
Nurse's Notes [facility] Name: Yumiko Arango Age: 84 yrs Sex: Female : 1940 Arrival Date: 04/24/2024 Time: 17:41 Bed 28 Private MD: Diagnosis: Acute cholecystitis Presentation: 04/24 18:30 Chief complaint: Patient's son or daughter states: Cris Short, pt's daughter, jl7 reports RUQ abdominal pain x 10 days, went to doctor in [place] and was dx with gallstones and inflammation. Coronavirus screen: At this time, the client does not indicate any symptoms associated with coronavirus-19. Ebola Screen: No symptoms or risks identified at this time. Initial Sepsis Screen: Does the patient meet any 2 criteria? No. Patient's initial sepsis screen is negative. Does the patient have a suspected source of infection? No. Patient's initial sepsis screen is negative. Risk Assessment: Do you want to hurt yourself or someone else? Patient reports no desire to harm self or others. Onset of symptoms is unknown. 18:30 Method Of Arrival: Wheelchair 7 18:30 Acuity: CLAUDIA 3 jl7 Triage Assessment: 18:32 General: Appears in no apparent distress. uncomfortable, Behavior is calm, cooperative, jl7 appropriate for age. Pain: Complains of pain in abdomen Pain currently is 8 out of 10 on a pain scale. Historical: - Allergies: 18:32 No Known Allergies; jl7 - PMHx: 18:32 High Blood Pressure; jl7 - PSHx: 18:32 Total abdominal hysterectomy; jl7 - Immunization history:: Adult Immunizations unknown. - Infectious Disease History:: Denies. - Social history:: Smoking status: Patient denies any tobacco usage or history of. Screenin:[facility] ED Fall Risk Assessment (Adult) History of falling in the last 3 months, me1 including since admission No falls in past 3 months (0 pts) Confusion or Disorientation No (0 pts) Intoxicated or Sedated No (0 pts) Impaired Gait Yes (1 pt) Mobility Assist Device Used Yes (1 pt) Altered Elimination No (0 pt) Score/Fall Risk Level 0 - 2 = Low Risk Maintained a safe environment, Provided non-skid footwear, Hourly rounding (assess needs \T\ fall precautionary measures) done. Abuse screen: Denies threats or abuse. Nutritional screening: No deficits noted. Tuberculosis screening: No symptoms or risk factors identified. Assessment: 19:51 General: Appears uncomfortable, obese, well groomed, well developed, Behavior is calm, me1 cooperative, appropriate for age, Reports RUQ pain 8/10, radiates to back with some associated nausea. Pain: Complains of pain in right upper quadrant Pain radiates to back Pain currently is 8 out of 10 on a pain scale. Quality of pain is described as sharp, shooting, Pain began 10 days ago Is continuous. Neuro: Level of Consciousness is awake, alert, obeys commands, Oriented to person, place, time, situation, Appropriate for age. Cardiovascular: Patient's skin is warm and dry. Respiratory: Airway is patent Respiratory effort is even, unlabored, Respiratory pattern is regular, symmetrical. GI: Reports upper abdominal pain, nausea, since 10 days ago. : No signs and/or symptoms were reported regarding the genitourinary system. EENT: No signs and/or symptoms were reported regarding the EENT system. Derm: Skin is intact, is healthy with good turgor, Skin is pink, warm \T\ dry. Musculoskeletal: No signs and/or symptoms reported regarding the musculoskeletal system. 04/25 01:37 Reassessment: Patient is alert, oriented x 3, equal unlabored respirations, skin mt4 warm/dry/pink. assumed care, patient assisted to bedside commode and a new diaper is provided, patient is returned back to bed, no acute distress observed, vital signs updated. Vital Signs: 04/24 18:30 BP 155 / 86; Pulse 95; Resp 17; Temp 98.3; Pulse Ox 95% ; Weight 81.65 kg; Height 5 ft. jl7 3 in. ; Pain 8/10; 21:00 BP 204 / 80; Pulse 75; Resp 16; Pulse Ox 97% ; me1 21:18 Pain 3/10; me1 22:00 BP 220 / 79; Pulse 73; Resp 16; Pulse Ox 95% ; me1 23:00 BP 212 / 81; Pulse 78; Resp 17; Pulse Ox 93% on R/A; me1 23:29 Pulse Ox 88% on R/A; me1 23:30 Pulse Ox 100% on 2 lpm NC; me1 12/31 01:37 BP 175 / 95; Pulse 83; Resp 19; Temp 99.8(O); Pulse Ox 94% on R/A; Pain 3/10; mt4 04/24 18:30 Body Mass Index 31.89 (81.65 kg, 160.02 cm) jl7 04/24 18:30 Pain Scale: Adult jl7 21:18 Pain Scale: Adult me1 04/25 01:37 Pain Scale: Adult mt4 ED Course: 04/24 17:47 Patient arrived in ED. ra3 18:32 Triage completed. jl7 18:32 Arm band placed on right wrist. Patient placed in waiting room, Patient notified of jl7 wait time. 19:02 Sav [facility]C [facility]. dr5 19:02 Sophia Arana MD is Attending Physician. dr5 19:47 US Abdomen Limited In Process Unspecified. EDMS 19:51 Francesca Maki, MARTY is Primary Nurse. me1 19:51 Patient has correct armband on for positive identification. Bed in low position. Call me1 light in reach. Side rails up X2. Provided Education on: POC. Verbalized understanding.. Client placed on continuous cardiac and pulse oximetry monitoring. NIBP monitoring applied. Pulse ox on. NIBP on. 19:51 No provider procedures requiring assistance completed. me1 20:40 CMP Sent. me1 20:40 Lipase Sent. me1 21:08 Melecio Burger MD is Hospitalizing Provider. dr5 23:40 Patient admitted, IV remains in place. me1 Administered Medications: 20:46 Drug: NS 0.9% IV 1000 ml IV at 1000 ml once; to be given as a bolus over 60 minutes me1 Route: IV; Rate: 1000 ml; Site: left antecubital; 22:15 Follow up: Response: No adverse reaction; IV Status: Completed infusion; IV Intake: me1 1000ml 20:52 Drug: morphine IVP or IV 4 mg IVP once over 4 mins Route: IVP; Infused Over: 4 mins; me1 Site: left antecubital; 21:18 Follow up: Pain 3/10 Adult; Response: No adverse reaction; Pain is decreased me1 20:52 Drug: Ondansetron IVP 4 mg IVP once; over 2 minutes Route: IVP; Site: left antecubital; me1 21:18 Follow up: Response: No adverse reaction; Nausea is decreased me1 Medication: 19:51 VIS not applicable for this client. me1 Intake: 22:15 IV: 1000ml; Total: 1000ml. me1 Outcome: 21:08 Decision to Hospitalize by Provider. dr5 23:40 Admitted to ER Hold. Please see [facility] for further documentation. me1 23:40 Condition: stable 23:40 Instructed on the need for admit, 04/25 11:21 Patient left the ED. jl7 Signatures: Dispatcher [employer] Gregorio Deng RN RN jl7 Francesca Maki RN RN me1 Jodi Peaz 3 Maico Palacios RN RN mt4 Sav Garcia, REI-C LOADER-5 Corrections: (The following items were deleted from the chart) 04/24 20:52 20:46 NS 0.9% IV 1000 ml IV at 1000 ml in left forearm me1 me1
--- NOTE | 2024-04-24 21:09 | EDPHYS ---
Physician Documentation [facility] Name: Yumiko Arango Age: 84 yrs Sex: Female : 1940 Arrival Date: 04/24/2024 Time: 17:41 Bed 28 Private MD: ED Physician Sophia Arana HPI: 04/24 20:19 This 84 yrs old Female presents to ER via Wheelchair with complaints of dr5 Stomach pain. 20:19 Onset: The symptoms/episode began/occurred 1 week(s) ago. 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 Patient went to [place] and saw a doctor and was diagnosed with cholelithiasis. Patient reports right upper quadrant pain after eating and has decreased her intake due to pain. Patient denies nausea, vomiting, or diarrhea, or fever.. Historical: - Allergies: 18:32 No Known Allergies; jl7 - PMHx: 18:32 High Blood Pressure; jl7 - PSHx: 18:32 Total abdominal hysterectomy; jl7 - Immunization history:: Adult Immunizations unknown. - Infectious Disease History:: Denies. - Social history:: Smoking status: Patient denies any tobacco usage or history of. ROS: 20:19 Constitutional: as per hpi dr5 Exam: 20:19 Constitutional: This is a well developed, well nourished patient who is awake, alert, dr5 and in no acute distress. Head/Face: Normocephalic, atraumatic. ENT: Nares patent. No nasal discharge, no septal abnormalities noted. Tympanic membranes are normal and external auditory canals are clear. Oropharynx with no redness, swelling, or masses, exudates, or evidence of obstruction, uvula midline. Mucous membranes moist. Neck: Trachea midline, no thyromegaly or masses palpated, and no cervical lymphadenopathy. Supple, full range of motion without nuchal rigidity, or vertebral point tenderness. No Meningismus. Chest/axilla: Normal chest wall appearance and motion. Nontender with no deformity. No lesions are appreciated. Cardiovascular: Regular rate and rhythm with a normal S1 and S2. Normal PMI, no JVD. No pulse deficits. 20:19 MS/ Extremity: Pulses equal, no cyanosis. Neurovascular intact. Full, normal range of motion. Neuro: Awake and alert, GCS 15, oriented to person, place, time, and situation. Cranial nerves II-XII grossly intact. Motor strength 5/5 in all extremities. Sensory grossly intact. Cerebellar exam normal. Normal gait. 20:19 Abdomen/GI: Inspection: abdomen appears normal, Bowel sounds: normal, Palpation: severe abdominal tenderness, in the right upper quadrant, rebound tenderness, Vital Signs: 18:30 BP 155 / 86; Pulse 95; Resp 17; Temp 98.3; Pulse Ox 95% ; Weight 81.65 kg; Height 5 ft. jl7 3 in. ; Pain 8/10; 21:00 BP 204 / 80; Pulse 75; Resp 16; Pulse Ox 97% ; me1 21:18 Pain 3/10; me1 22:00 BP 220 / 79; Pulse 73; Resp 16; Pulse Ox 95% ; me1 23:00 BP 212 / 81; Pulse 78; Resp 17; Pulse Ox 93% on R/A; me1 23:29 Pulse Ox 88% on R/A; me1 23:30 Pulse Ox 100% on 2 lpm NC; az1 04/25 01:37 BP 175 / 95; Pulse 83; Resp 19; Temp 99.8(O); Pulse Ox 94% on R/A; Pain 3/10; mt4 04/24 18:30 Body Mass Index 31.89 (81.65 kg, 160.02 cm) [facility] 04/24 18:30 Pain Scale: Adult jl7 21:18 Pain Scale: Adult az1 04/25 01:37 Pain Scale: Adult mt4 MDM: 04/24 19:05 Medical Screening Exam initiated dr5 21:11 Differential diagnosis: Acute cholecystitis, pancreatitis, choledocholithiasis. Data dr5 reviewed: vital signs, nurses notes, radiologic studies, ultrasound. Consideration of Admission/Observation Patient was admitted/placed on observation. I considered the following discharge prescriptions or medication management in the emergency department Medications were administered in the Emergency Department. See MAR. Care significantly affected by the following Social Determinants of Health: Poor access to healthcare and/or lack of insurance, Poor access to transportation, Problems related to employment. Counseling: I had a detailed discussion with the patient and/or guardian regarding the historical points, exam findings, and any diagnostic results supporting the discharge/admit diagnosis, the presence of at least one elevated blood pressure reading (>120/80) during this emergency department visit, the need for further work-up and treatment in the hospital. ED course: Spoke with Dr. Chi (keep patient NPO and will do MRCP in the morning). Admit to . 04/24 18:35 Order name: CBC with Diff; Complete Time: 20:25 jl7 04/24 18:35 Order name: CMP; Complete Time: 20:49 jl7 04/24 18:35 Order name: Lipase; Complete Time: 20:49 jl7 04/24 21:41 Order name: CBC with Automated Diff EDMS 04/24 21:41 Order name: CBC with Automated Diff EDDE 04/24 21:41 Order name: Comprehensive Metabolic Panel EDDE 04/24 21:41 Order name: Comprehensive Metabolic Panel EDDE 04/24 18:35 Order name: US Abdomen Limited; Complete Time: 20:06 jl7 04/24 21:41 Order name: Cholangiogram EDDE 04/25 11:08 Order name: MRI EDDE 04/24 21:41 Order name: CONS Physician Consult EDDE 04/24 18:35 Order name: IV Saline Lock; Complete Time: 20:40 jl7 04/24 18:35 Order name: Labs collected and sent; Complete Time: 20:40 jl7 Administered Medications: 20:46 Drug: NS 0.9% IV 1000 ml IV at 1000 ml once; to be given as a bolus over 60 minutes me1 Route: IV; Rate: 1000 ml; Site: left antecubital; 22:15 Follow up: Response: No adverse reaction; IV Status: Completed infusion; IV Intake: me1 1000ml 20:52 Drug: morphine IVP or IV 4 mg IVP once over 4 mins Route: IVP; Infused Over: 4 mins; me1 Site: left antecubital; 21:18 Follow up: Pain 3/10 Adult; Response: No adverse reaction; Pain is decreased me1 20:52 Drug: Ondansetron IVP 4 mg IVP once; over 2 minutes Route: IVP; Site: left antecubital; me1 21:18 Follow up: Response: No adverse reaction; Nausea is decreased me1 Disposition Summary: 04/24/24 21:08 Hospitalization Ordered Notes: Hospitalization Status: Inpatient Admission dr5 Provider: Jennyfer, Melecio dr5 Condition: Stable dr5 Problem: new dr5 Symptoms: are unchanged dr5 Bed/Room Type: Standard dr5 Location: [facility] ER HOLD(04/24/24 22:06) vc1 Room Assignment: ERHOLD-(04/24/24 22:06) vc1 Diagnosis - Acute cholecystitis dr5 Forms: - Medication Reconciliation Form dr5 - SBAR form dr5 - Leadership Thank You Letter dr5 Signatures: Dispatcher [employer] EDMS Gregorio Christine RN RN jl7 Trinidad Dominguez RN RN vc1 Francesca Maki RN RN me1 Sav Garcia, SUGAR REPROCESS OPERATOR HEAD-C SUGAR REPROCESS OPERATOR HEAD-Cdr5 Corrections: (The following items were deleted from the chart) 18:35 18:35 CBC+H.LAB.BRZ ordered. EDMS EDMS 18:35 18:35 COMPREHENSIVE METABOLIC PANEL+C.LAB.BRZ ordered. EDMS EDMS 18:35 18:35 LIPASE+C.LAB.BRZ ordered. EDMS EDMS 18:35 18:35 Abdomen Limited+US.RAD.BRZ ordered. EDMS EDMS 22:06 21:08 Telemetry/MedSurg (Inpatient) dr5 vc1 22:06 21:08 dr5 vc1
[2024-04-24] MEDS ORDERED: ONDANSETRON 4 MG/2 ML VIAL IV PRN (21:34)
--- NOTE | 2024-04-24 21:43 | P.HP ---
Certification for Inpatient With expected LOS: >2 Midnights Practitioner: I am a practitioner with admitting privileges, knowledge of patient current condition, hospital course, and medical plan of care. Services: Services provided to patient in accordance with Admission requirements found in Title 42 Section 412.3 of the Code of Federal Regulations Patient History Date of Service: 04/24/24 Reason for admission: Right upper quadrant pain History of Present Illness: Is 84 years of age has been complaining of right upper quadrant pain for the past week prior history of gallbladder disease and was admitted from the emergency room with a diagnosis of acute cholecystitis Allergies No Known Allergies Allergy (Verified 09/16/17 07:49) Home Medications: Omeprazole [Prilosec] 40 mg PO DAILY 09/16/17 Sertraline [Zoloft*] 50 mg PO DAILY 09/16/17 Aspirin Tab [Efra Aspirin*] 325 mg PO DAILY #90 tab 09/17/17 Atorvastatin Calcium [Lipitor*] 80 mg PO BEDTIME #90 tab 09/17/17 Metoprolol Tartrate [Lopressor*] 50 mg PO BID #60 tab 09/17/17 Valsartan [Diovan] 80 mg PO BID #60 tablet 09/17/17 cloNIDine HCL [Catapres*] 0.1 mg PO BID #60 tab 09/17/17 - Past Medical/Surgical History Diabetic: No -: HTN -: gastritis -: anxiety -: hysterectomy -: hernia repair - Social History Alcohol use: No CD- Drugs: No Caffeine use: No Review of Systems 10-point ROS is otherwise unremarkable Physical Examination - Vital Signs Temperature: 101.7 F Blood Pressure: 155/88 Pulse: 77 Respirations: 18 Pulse Ox (%): 98 - Physical Exam General: Alert, Oriented x2 Neck: Supple Respiratory: Clear to auscultation bilaterally Cardiovascular: No edema Gastrointestinal: Normal bowel sounds, Soft and benign, Tenderness (Right upper quadrant) Musculoskeletal: No clubbing Integumentary: No rashes, No breakdown - Studies Laboratory Data (last 24 hrs) 04/24/24 04/24/24 20:18 20:18 WBC 4.60 Hgb 14.5 Hct 43.1 Plt Count 137 L Sodium 141 Potassium 3.9 BUN 19 H Creatinine 1.15 H Glucose 158 H Total Bilirubin 0.3 AST 71 H ALT 69 H Alkaline Phosphatase 70 Lipase 23 Assessment and Plan - Problems (Diagnosis) (1) Acute cholecystitis Current Visit: Yes Status: Acute Plan: Patient is 84 years of age admitted with a diagnosis of right upper quadrant pain diagnosed with acute cholecystitis apparently she was in [place] 10 days ago and was informed that she has some gallstone she has significant right upper quadrant tenderness normal CBC patient's creatinine is mildly elevated also has abnormal LFTs common bile duct is also mildly dilated will plan to admit start on IV antibiotics MRCP n.p.o. IV fluids pain relief Dr. Chi ultrasound Liver: Limited evaluation. Probable hepatic steatosis. Bile ducts: Dilated common bile duct Common bile duct measures 8 mm. Gallbladder: Gallbladder is contracted. No gallbladder wall thickening. Gallstones are present. A sonographic Flores sign was reported. IMPRESSION: Cholelithiasis with sonographic Flores sign reported. No gallbladder wall thickening, pericholecystic fluid, or gallbladder distention. The exam is equivocal for acute cholecystitis. Discharge Plan: Home Plan to discharge in: 48 Hours - Advance Directives Does patient have a Living Will: No Does patient have a Durable POA for Healthcare: No
[2024-04-24] MEDS: NA CHLORIDE 0.9% 1,000 ML IV SCH (22:00)
[2024-04-25 00:29] VITALS: BMI 31.8
[2024-04-25] MEDS: AMLODIPINE 5 MG TAB PO ONE (03:16)
[2024-04-25] MEDS ORDERED: AMLODIPINE 5 MG TAB ONE (03:29)
[2024-04-25 04:42] LABS: Absolute Lymphocytes (CBC) 1.6 K/uL (0.7-4.9); Absolute Monocytes 0.7 K/uL (0.1-1.3); Basophils % 0.5 % (0-1.3); Eosinophils % 0.5 % (0-4.4); Hematocrit 40.5 % (36.0-45.0); Hemoglobin 13.3 g/dL (12.0-15.0); Lymphocytes % 36.9 % (15.3-44.8); MCH 33.2 pg (27.0-35.0); MCHC 32.9 g/dL (32.0-36.0); MCV 100.9 fL (80-100); Monocytes % 15.6 % (3.3-12.3); Neutrophils % 46.5 % (41.7-73.7); Nucleated Red Blood Cells % 0.2 % (0-0); Platelets 124 thou/uL (152-406); RBC Red Blood Cell Count 4.01 M/uL (3.86-4.86); Red Cell Distribution Width 13.5 % (12.1-15.2)
[2024-04-25 04:59] LABS: Albumin 2.8 g/dL (3.4-5.0); Albumin/Globulin Ratio 0.7 (1.1-1.8); Anion Gap 7.3 mEq/L (5.0-15.0); Bilirubin Total 0.2 mg/dL (0.2-1.0); Globulin 3.9 g/dL (2.3-3.5); Protein, Total 6.7 g/dL (6.4-8.2)
[2024-04-25 05:00] LABS: Potassium 4.3 mEq/L (3.5-5.1)
[2024-04-25] MEDS ORDERED: HYDRALAZINE HCL 20 MG/ML VIAL ONE (06:08)
[2024-04-25] MEDS: HYDRALAZINE HCL 20 MG/ML VIAL IV PRN (06:27)
[2024-04-25] MEDS ORDERED: FLU (Fluarix Triv) TS24-25(6MOS UP)/PF 45 MCG/0.5 ML Syringe IM ONE (08:30)
[2024-04-25] MEDS: CEFTRIAXONE 1,000 MG in NA CHLORIDE 0.9% 50 ML IVPB SCH (09:00)
[2024-04-25] MEDS ORDERED: PNEUMOCOCCAL VACCINE 0.5 ML IMVAC ONE (09:00)
--- NOTE | 2024-04-25 10:20 | CON ---
Date of Consultation: 04/25/2024 Diagnoses: Acute cholecystitis, symptomatic cholelithiasis. History Of Present Illness: This is a case of an 84-year-old patient who comes to us with epigastric /right upper quadrant pain, radiating to the back, associated with nausea and vomiting. She has had this for the last 10 days when she was in [place], she was seen by the doctors of that area, recommend ed the patient to take care of that, but she waited until she comes to us and shows in ER with the sa me symptoms. She has not been able to eat properly. The pain is not getting better. She denies any dysuria, hematuria, hematochezia, melena. Denies any other family member sick at home. Recent charles eling as described above. No shortness of breath. No chest pain. Review of Systems: Ten points otherwise unremarkable. Past Medical History: Hypertension, gastritis, anxiety. Past Surgical History: Includes hernia repair, she does not remember where and hysterectomy. Family History: Noncontributory. Allergies: NONE. Medications: Prilosec, Zoloft, aspirin, Lopressor, Diovan, Catapres. Physical Examination: Vital Signs: Reviewed. General: The patient is awake and alert. Discussed the case with her in [place] and [place]. HEENT: Pupils are equal and reactive. Anicteric. Neck: Supple. Chest: Clear. Abdomen: Soft and depressible. Epigastric/right upper quadrant pain. Flores sign positive. Breasts: Deferred. Rectal: Deferred. Pelvis: Deferred. Extremities: Good capillary refill. Laboratory Data: Blood work shows of 141, bicarb 26, glucose 158. Lipase 23. WBC count is 4.6, hemoglobin of 14.5, and platelets 137. Ultrasound of the abdomen shows cholelithiasis with s onographic Flores sign positive. Assessment: This 84-year-old patient comes to us with epigastric/right upper quadrant pain, nausea, vomiting. It has been 10 days, has not gotten better, diagnosed with acute cholecystitis and symptom atic cholelithiasis. LFTs slightly elevated. Pending an MRCP. We discussed with the patient and th e family in [place] the options of laparoscopic, possible open cholecystectomy with benef its, alternatives, and risks including, but not limited to, infection, bleeding, damage to adjacent s tructures, anesthesia complication, choledocholithiasis, bile leak, pancreatitis, myocardial infarcti on, and even . She also understands this may not relieve any symptoms. She might need more catarina n one surgical intervention. They understood. The OR was notified pending MRCP result. DAVID/EARL Voice ID: [id number] Report ID: [id number]
--- NOTE | 2024-04-25 10:28 | P.PN ---
Date of Service: 04/25/24 Subjective Denies nausea, vomiting. Right upper quadrant pain less then yesterday but remains Review of Systems 10-point ROS is otherwise unremarkable abdominal pain, no N/V Physical Examination - Vital Signs Reviewed - Physical Exam General: Alert, Oriented x2 Neck: Supple Respiratory: Clear to auscultation bilaterally Cardiovascular: No edema, normal sinus rhythm Gastrointestinal: Normal bowel sounds, Soft and benign, Tenderness (Right upper quadrant) Musculoskeletal: No clubbing Integumentary: No rashes, No breakdown - Studies Laboratory Data (last 24 hrs) 04/24/24 04/24/24 20:18 20:18 WBC 4.60 Hgb 14.5 Hct 43.1 Plt Count 137 L Sodium 141 Potassium 3.9 BUN 19 H Creatinine 1.15 H Glucose 158 H Total Bilirubin 0.3 AST 71 H ALT 69 H Alkaline Phosphatase 70 Lipase 23 Assessment and Plan - Problems (Diagnosis) (1) Acute cholecystitis Current Visit: Yes Status: Acute Plan: Patient is 84 years of age admitted with a diagnosis of right upper quadrant pain diagnosed with acute cholecystitis apparently she was in [place] 10 days ago and was informed that she has some gallstones. Today she has a normal CBC, creatinine is mildly elevated, has abnormal LFTs, and the common bile duct is also mildly dilated. will plan to admit start on IV antibiotics MRCP pending today n.p.o. IV fluids pain relief Dr. Chi consulted ultrasound of Liver: Limited evaluation. Probable hepatic steatosis. Bile ducts: Dilated common bile duct Common bile duct measures 8 mm. Gallbladder: Gallbladder is contracted. No gallbladder wall thickening. Gallstones are present. A sonographic Flores sign was reported. IMPRESSION: Cholelithiasis with sonographic Flores sign reported. No gallbladder wall thickening, pericholecystic fluid, or gallbladder distention. The exam is equivocal for acute cholecystitis. Discharge Plan: Home Plan to discharge in: 48 Hours - Advance Directives Does patient have a Living Will: No Does patient have a Durable POA for Healthcare: No
[2024-04-25] MEDS ORDERED: propofoL 200 MG/20 ML VIAL IV ONE ×2 (10:33)
[2024-04-25] MEDS ORDERED: LIDOCAINE 2% MPF 5 ML VIAL ONE (10:33)
[2024-04-25] MEDS ORDERED: dexAMETHasone 4 MG/ML VIAL ONE (10:33)
[2024-04-25] MEDS ORDERED: FENTANYL CITR 250 MCG/5 ML ONE (10:33)
[2024-04-25] MEDS ORDERED: MIDAZOLAM HCL 2 MG/2 ML INJ ONE (10:33)
[2024-04-25] MEDS ORDERED: ONDANSETRON 4 MG/2 ML VIAL ONE (10:33)
[2024-04-25] MEDS ORDERED: ROCURONIUM 50 MG/5 ML VIAL IV ONE ×2 (10:33)
[2024-04-25] MEDS ORDERED: NS 0.9% VIAL 10 ML ONE (10:33)
[2024-04-25] MEDS ORDERED: NA CHLORIDE 0.9% 100 ML ONE (10:57)
--- NOTE | 2024-04-25 11:08 | RAD REPORT ---
EXAMINATION: MR CHOLANGIOGRAM CLINICAL INDICATION: Abdominal pain TECHNIQUE: Magnetic resonance cholangiopancreatogram was performed. 3D MIP reconstruction done. COMPARISON: Abdominal ultrasound April 24, 2024 FINDINGS: Some of the images are degraded by motion artifact. Multiple gallstones.. Gallbladder wall is thickened. Biliary tree is normal caliber. A filling defect within the biliary tree is not seen. The pancreatic duct is unremarkable. IMPRESSION: Cholelithiasis Thickened gallbladder wall suspicious for cholecystitis
[2024-04-25] MEDS: CEFTRIAXONE 1000 MG/VIAL ONE (11:31)
[2024-04-25] MEDS: Ringers Lactate 1,000 ML IV ONE (11:31)
[2024-04-25] MEDS ORDERED: Phenylephrine HCl 10 MG/ML 1 ML VIAL ONE (12:12)
[2024-04-25] MEDS: SUGAMMADEX SODIUM 200 MG/2 ML VIAL IV ONE (12:21)
--- NOTE | 2024-04-25 12:36 | P.BOP ---
Preoperative diagnosis: acute cholecystitis, symptomatic cholelithiasis Postoperative diagnosis: same, intrabdominal adhesions Primary procedure: 1. Laparoscopic cholecystectomy Secondary procedure: 2. Laparoscopic lysis of adhesions [place] Hardware Installer: Barbara Duarte) Estimated blood loss: <20cc Specimen: gb Findings: multinodular liver ( see picture) , inflammed gallbladder Anesthesia: General Complications: None Drain(s): ANTELMO drain Transferred to: Recovery Room Condition: Good
[2024-04-25] MEDS: HYDRALAZINE HCL 20 MG/ML VIAL ONE (12:50)
[2024-04-25] MEDS: HYDROMORPHONE HCL 1 MG/ML INJ ONE (13:04)
--- NOTE | 2024-04-25 13:13 | OP ---
Date of Procedure: 04/25/2024 Surgeon: Phillip Chi MD Contract Technical Writer: DELORES Hair Preoperative Diagnoses: Acute cholecystitis, symptomatic cholelithiasis. Postoperative Diagnoses: Acute cholecystitis, symptomatic cholelithiasis plus extensive intraabdomin al adhesions. Procedures: 1.Laparoscopic cholecystectomy. 2.Laparoscopic lysis of adhesions. Estimated Blood Loss: Less than 20 cc. Specimen: Gallbladder. Findings: Inflamed, distended gallbladder. Multiple intraabdominal adhesions that comes to the ante rior abdominal wall and to the liver. We also noticed a very multinodular liver. The question of ci rrhosis is present. I took some pictures for her to show to her primary doctor. Anesthesia: General plus local. Complications: None. Drains: ANTELMO #10. Indications: This is a case of an 84-year-old patient with a 10-day history of epigastric abdominal pain radiating to the back. [place] was out of the country, came back, and the pain did not get better. So she showed up in the ER diagnosed with acute cholecystitis, symptomatic cholelithiasis. MRCP don e this morning showing no stones in the common bile duct. So, a laparoscopic possible open cholecyst ectomy explained to her as one of the options with benefits, alternatives, and risks including, but n ot limited to, infection, bleeding, damage to adjacent structures, anesthesia complications, choledoc holithiasis, bile leak, pancreatitis, CA, and even . She also understands this may not relieve any symptoms. She might need more than one surgical intervention. She understood, signed a consent. Description Of Procedure: Patient was brought to the operating room, placed in supine position. Ane sthesia was induced without complication. Abdominal area was prepped and draped in usual sterile fas hion. Marcaine 0.5% was injected for local anesthetic. She had a ventral infraumbilical incision fo r a laparotomy. She also had an epigastric laparotomy. She claimed she had hernias in the past, so may be the reason for it. So we made an incision in the virgin area. Incision was carried down to f ascia, which was opened under direct visualization. Karen trocar was carefully introduced after put ting Vicryl #1 inside of the fascia and pneumoperitoneum was obtained. Immediately, we noticed multi ple adhesions in the upper abdomen to the point that in order for us to continue we had to spend prob ably half the time of the case just doing adhesions. So, we placed trocars sequentially in the epiga stric right upper quadrant area as the adhesions were removed under direct visualization. The adhesi ons were removed with the help of LigaSure. Once we have a clear visualization of the gallbladder an d the liver, we noticed a multinodular liver, not surprised that this represented chronic cirrhosis o f the liver. We took some pictures and we encouraged her to show her to the alarm technician to se e if there is any other treatment that have to be done. The gallbladder was inflamed and distended. Some omental adhesions also to the gallbladder were also cleaned with the help of LigaSure. Grasper placed in the fundus of the gallbladder, another grasper in the infundibulum retracting the gallblad mack in the inferolateral fashion exposing the triangle of Calot and obtaining critical view. Cystic duct and cystic artery were clearly isolated, freed circumferentially, and a connection between those and the gallbladder were clearly identified. I proceeded to ligate those by using at least 3 clips proximal, 1 clip distal, ligation in the middle. Same was done with the cystic artery. A small nasima le branch of the cystic artery was also ligated under the same technique. Hepatic arteries and commo n bile duct were protected at all times. The area was inspected once again. No bile leak. No bleed ing. Gallbladder was removed from the liver using Bovie cauterizer and removed from abdominal cavity using EndoCatch through the umbilical incision. The area was inspected once again. No bile leak. No bleeding. The gallbladder looks inflamed. All area looks inflamed. So, I left a ANTELMO drain #10 an d exiting through one of the trocar sites, secured in place with 3-0 nylon. After ensuring hemostasi s, we proceeded then to remove the trocars under direct vision. We checked also before that the area of the lysis of adhesions with no bleeding. We removed the trocars under direct vision, deflated pn eumoperitoneum, closed the fascia with #1 Vicryl with a [id number] fashion multiple times. We i rrigated subcutaneous tissue, closed that with 3-0 chromic, and the skin with jose. Sponge counts and instrument counts correct. ANTELMO was connected to bulb suction. Patient on her way to Recovery in stable condition. HM/MODL Voice ID: [id number] Report ID: [id number]
[2024-04-25] MEDS: NA CHLORIDE 0.9% 1,000 ML IV SCH (13:44)
[2024-04-25] MEDS: LOSARTAN POTASSIUM 50 MG TABLET PO SCH (15:24)
[2024-04-25] MEDS: MORPHINE 2 MG/ML SYR IV PRN (19:46)
[2024-04-25] MEDS: ACETAMINOPHEN 325 MG TABLET PO PRN (20:28)
[2024-04-26] MEDS: PIPER TAZO 3.375 GM in NA CHLORIDE 0.9% 100 ML IV SCH (00:09)
[2024-04-26] MEDS: NA CHLORIDE 0.9% 1,000 ML IV SCH (00:09)
[2024-04-26] MEDS: HYDROCODONE/APAP 5/325 MG TAB PO PRN (01:19)
[2024-04-26 06:40] LABS: Absolute Lymphocytes (CBC) 1.4 K/uL (0.7-4.9); Absolute Monocytes 0.9 K/uL (0.1-1.3); Absolute Neutrophil 6.1 K/uL (1.8-8.0); Basophils % 0.2 % (0-1.3); Hematocrit 39.9 % (36.0-45.0); Hemoglobin 13.6 g/dL (12.0-15.0); Lymphocytes % 16.7 % (15.3-44.8); MCHC 34.1 g/dL (32.0-36.0); MCV 99.6 fL (80-100); MPV 9.2 fL (7.6-11.3); Monocytes % 11.2 % (3.3-12.3); Neutrophils % 71.9 % (41.7-73.7); Nucleated Red Blood Cells % 0.1 % (0-0); Platelets 147 thou/uL (152-406); RBC Red Blood Cell Count 4.01 M/uL (3.86-4.86); Red Cell Distribution Width 13.9 % (12.1-15.2)
[2024-04-26 06:57] LABS: Albumin 2.5 g/dL (3.4-5.0); Albumin/Globulin Ratio 0.7 (1.1-1.8); Bilirubin Total 0.5 mg/dL (0.2-1.0); Globulin 3.5 g/dL (2.3-3.5)
--- NOTE | 2024-04-26 13:17 | PN ---
Date of Progress Note: 04/26/2024 Diagnosis: Status post cholecystectomy. Subjective: Patient is doing well. No shortness of breath. No chest pain and no fever. Objective: CHEST: Clear. ABDOMEN: Soft and depressible. Intact surgical site. ANTELMO drain clear. Laboratory Data: Blood work shows WBC count of 8.5. Creatinine is 1.21, total bilirubin of 0.5, alk abner phos 48. Plan: From the surgical standpoint, when she is medically clear, she can go home and just follow up in my office on either Wednesday or Wednesday and record the ANTELMO drain every 24 hours. We will remove the J ac[place] drain when she comes to my office. Continue antibiotics and pain medication. DAVID/EARL Voice ID: [id number] Report ID: [id number]
--- NOTE | 2024-04-26 16:53 | P.PN ---
Date of Service: 04/26/24 Subjective Denies nausea, vomiting. no overnight events, tolerating full liquids Review of Systems 10-point ROS is otherwise unremarkable abdominal pain, no N/V Physical Examination - Vital Signs Reviewed - Physical Exam General: Alert, Oriented x3, Cooperative, no distress HEENT: Atraumatic, Normocephalic Neck: Supple Respiratory: Clear to auscultation bilaterally, Normal air movement Cardiovascular: No edema, Regular rate/rhythm, Normal S1 S2 Capillary refill: <2 Seconds Gastrointestinal: Soft and benign, without hepatosplenomegaly, lap sherry bandages clean and dry with ANTELMO drain intact Musculoskeletal: No clubbing, No swelling Integumentary: No rashes, No breakdown Neurological: Normal gait, Normal speech, Normal strength at 5/5 x4 extr, Cranial nerves 3-12 intact, Normal affect Lymphatics: No axilla or inguinal lymphadenopathy - Studies Laboratory Data (last 24 hrs) 04/24/24 04/24/24 20:18 20:18 WBC 4.60 Hgb 14.5 Hct 43.1 Plt Count 137 L Sodium 141 Potassium 3.9 BUN 19 H Creatinine 1.15 H Glucose 158 H Total Bilirubin 0.3 AST 71 H ALT 69 H Alkaline Phosphatase 70 Lipase 23 Assessment and Plan - Problems (Diagnosis) (1) Acute cholecystitis Current Visit: Yes Status: Acute Plan: Patient is 84 years of age admitted with a diagnosis of right upper quadrant pain diagnosed with acute cholecystitis apparently she was in [place] 10 days ago and was informed that she has some gallstones. Today she has a normal CBC, creatinine is mildly elevated, has abnormal LFTs, and the common bile duct is also mildly dilated. Postop day #1 Continue on IV antibiotics Will maintain ANTLEMO drain IV fluids will discontinue today pain relief Dr. Chi cleared patient from surgical standpoint Discharge Plan: Home Plan to discharge in: 24 Hours - Advance Directives Does patient have a Living Will: No Does patient have a Durable POA for Healthcare: No
[2024-04-26] MEDS: METOPROLOL TAR 50 MG TAB PO SCH (20:24)
[2024-04-26] MEDS: VALSARTAN 80 MG TAB PO SCH (20:25)
[2024-04-27 05:48] LABS: Absolute Lymphocytes (CBC) 0.8 K/uL (0.7-4.9); Absolute Monocytes 0.6 K/uL (0.1-1.3); Absolute Neutrophil 7.6 K/uL (1.8-8.0); Basophils % 0.3 % (0-1.3); Hematocrit 40.9 % (36.0-45.0); Hemoglobin 13.7 g/dL (12.0-15.0); Lymphocytes % 8.9 % (15.3-44.8); MCH 33.5 pg (27.0-35.0); MCHC 33.5 g/dL (32.0-36.0); MCV 99.8 fL (80-100); MPV 9.3 fL (7.6-11.3); Monocytes % 6.6 % (3.3-12.3); Neutrophils % 84.2 % (41.7-73.7); Nucleated Red Blood Cells % 0.1 % (0-0); Platelets 132 thou/uL (152-406)
[2024-04-27 06:21] LABS: Albumin 2.3 g/dL (3.4-5.0); Albumin/Globulin Ratio 0.6 (1.1-1.8); Anion Gap 9.6 mEq/L (5.0-15.0); Bilirubin Total 0.5 mg/dL (0.2-1.0); Globulin 3.8 g/dL (2.3-3.5); Potassium 3.6 mEq/L (3.5-5.1); Protein, Total 6.1 g/dL (6.4-8.2)
[2024-04-27 08:40] VITALS: BP 199/68
[2024-04-27 09:07] VITALS: TEMP 99.9
[2024-04-27 09:55] VITALS: O2SAT 93
--- NOTE | 2024-04-27 13:27 | P.DS ---
Admission Date: 04/25/24 Discharge Date: 04/27/24 Disposition: ROUTINE DISCHARGE Discharge Condition: GOOD Reason for Admission: Right upper quadrant pain Consultations: Dr. Chi Procedures: Laparoscopic cholecystectomy Hospital Course: Patient is 84 years of age admitted with a diagnosis of right upper quadrant pain diagnosed with acute cholecystitis apparently she was in [place] 10 days ago and was informed that she has some gallstones. Today she has a normal CBC, creatinine is mildly elevated, has abnormal LFTs, and the common bile duct is also mildly dilated. ultrasound of Liver: Limited evaluation. Probable hepatic steatosis. Bile ducts: Dilated common bile duct Common bile duct measures 8 mm. Gallbladder: Gallbladder is contracted. No gallbladder wall thickening. Gallstones are present. A sonographic Flores sign was reported. IMPRESSION: Cholelithiasis with sonographic Flores sign reported. No gallbladder wall thickening, pericholecystic fluid, or gallbladder distention. The exam is equivocal for acute cholecystitis. MRCP performed that was negative. Ms. Ap Arango underwent laparoscopic cholecystectomy. A ANTELMO drain was placed. There is serous fluid from the ANTELMO drain which needs to be measured every 24 hours. She will follow-up with Dr. Chi in his clinic next week and he will remove the ANTELMO drain. Dressings are clean and dry, she is tolerating p.o., pain is controlled. She will be discharged with antibiotics, antiemetic, and pain medications. Follow up with Dr. Chi in his office 05/03/24 May take shower with dressing off. Record ANTELMO output q24h. No lifting more than 5 pounds Please take antibiotics as directed. Rx: Augmentin 875 mg po BID x 7 days (#14) Tylenol with codeine 1 po q6-8 hours prn pain (#12) Zofran 4mg po q 6h prn nausea/vomiting (#20) Vital Signs/Physical Exam: Temp Pulse Resp BP Pulse Ox 99.9 F 85 18 199/68 H 93 04/27/24 08:00 04/27/24 08:40 04/27/24 08:00 04/27/24 08:40 04/27/24 08:00 Other Physical/Emotional Findings: - Physical Exam. General: Alert, Oriented x3, Cooperative, no distress. HEENT: Atraumatic, Normocephalic. Neck: Supple. Respiratory: Clear to auscultation bilaterally, Normal air movement. Cardiovascular: No edema, Regular rate/rhythm, Normal S1 S2. Capillary refill: <2 Seconds. Gastrointestinal: Soft and benign, without hepatosplenomegaly, surgical dressings to trochar sites clean and dry, serous fluid to ANTELMO bulb (about 15 ml) noted. Musculoskeletal: No clubbing, No swelling. Integumentary: No rashes, No breakdown. Neurological: Normal gait, Normal speech, Normal strength at 5/5 x4 extr, Cranial nerves 3-12 intact, Normal affect. Lymphatics: No axilla or inguinal lymphadenopathy Laboratory Data at Discharge: WBC 9.10 thou/uL (4.3-10.9) 04/27/24 05:15 Hgb 13.7 g/dL (12.0-15.0) 04/27/24 05:15 Hct 40.9 % (36.0-45.0) 04/27/24 05:15 Plt Count 132 thou/uL (152-406) L 04/27/24 05:15 Sodium 137 mEq/L (136-145) 04/27/24 05:15 Potassium 3.6 mEq/L (3.5-5.1) 04/27/24 05:15 BUN 16 mg/dL (7-18) 04/27/24 05:15 Creatinine 0.95 mg/dL (0.55-1.02) 04/27/24 05:15 Glucose 146 mg/dL (74-106) H 04/27/24 05:15 Total Bilirubin 0.5 mg/dL (0.2-1.0) 04/27/24 05:15 AST 54 U/L (15-37) H 04/27/24 05:15 ALT 57 U/L (13-56) H 04/27/24 05:15 Alkaline Phosphatase 45 U/L (45-117) 04/27/24 05:15 Lipase 8 U/L (13-75) L 04/27/24 05:15 Home Medications: Omeprazole [Prilosec] 40 mg PO DAILY 09/16/17 Sertraline [Zoloft*] 50 mg PO DAILY 09/16/17 Aspirin Tab [Efra Aspirin*] 325 mg PO DAILY #90 tab 09/17/17 Atorvastatin Calcium [Lipitor*] 80 mg PO BEDTIME #90 tab 09/17/17 Metoprolol Tartrate [Lopressor*] 50 mg PO BID #60 tab 09/17/17 Valsartan [Diovan] 80 mg PO BID #60 tablet 09/17/17 cloNIDine HCL [Catapres*] 0.1 mg PO BID #60 tab 09/17/17 Amox/Clavulanate [Augmentin 875-125 Tab] 1 each PO BID #14 tab 04/27/24 Codeine/APAP [Tylenol W/Codeine #3 tab] 1 tab PO TID PRN #15 tab 04/27/24 Metoprolol Tartrate [Lopressor*] 50 mg PO BID tab 04/27/24 Ondansetron [Zofran] 4 mg PO Q6H PRN #20 tab 04/27/24 New Medications: Amox/Clavulanate [Augmentin 875-125 Tab] 1 each PO BID #14 tab Codeine/APAP [Tylenol W/Codeine #3 tab] 1 tab PO TID PRN #15 tab PRN Reason: Pain Ondansetron [Zofran] 4 mg PO Q6H PRN #20 tab PRN Reason: Nausea / Vomiting Physician Discharge Instructions: Patient is 84 years of age admitted with a diagnosis of right upper quadrant pain diagnosed with acute cholecystitis apparently she was in [place] 10 days ago and was informed that she has some gallstones. Today she has a normal CBC, creatinine is mildly elevated, has abnormal LFTs, and the common bile duct is also mildly dilated. ultrasound of Liver: Limited evaluation. Probable hepatic steatosis. Bile ducts: Dilated common bile duct Common bile duct measures 8 mm. Gallbladder: Gallbladder is contracted. No gallbladder wall thickening. Gallstones are present. A sonographic Flores sign was reported. IMPRESSION: Cholelithiasis with sonographic Flores sign reported. No gallbladder wall thickening, pericholecystic fluid, or gallbladder distention. The exam is equivocal for acute cholecystitis. MRCP performed that was negative. Ms. Ap Aranog underwent laparoscopic cholecystectomy. A ANTELMO drain was placed. There is serous fluid from the ANTELMO drain which needs to be measured every 24 hours. She will follow-up with Dr. Chi in his clinic next week and he will remove the ANTELMO drain. Dressings are clean and dry, she is tolerating p.o., pain is controlled. She will be discharged with antibiotics, antiemetic, and pain medications. Follow up with Dr. Chi in his office 05/03/24 May take shower with dressing off. Record ANTELMO output q24h. No lifting more than 5 pounds Please take antibiotics as directed. Rx: Augmentin 875 mg po BID x 7 days (#14) Tylenol with codeine 1 po q6-8 hours prn pain (#12) Zofran 4mg po q 6h prn nausea/vomiting (#20) Diet: [place] Activity: No lifting more than 10 lbs Followup: Phillip Chi MD [ACTIVE - CAN ADMIT] - 1 Week Fredy Varghese MD [Primary Care Provider] - 1-2 Weeks
== END 2024-04-27 10:32 | disposition home or self-care (01) | DRG 419 ==
LOC: ER 17:41 → ERHOLD 04-25 00:09 → 2ND 04-25 11:22
PROVIDERS: ADMIT Internal Medicine Sleep Medicine; ATTEND Internal Medicine
PROC: 0FT44ZZ Resection of Gallbladder, Percutaneous Endoscopic Approach (ICD-10-PCS; principal; 2024-04-25 11:39)
DX: K80.00 Calculus of gallbladder with acute cholecystitis without obstruction (principal); I10 Essential (primary) hypertension; K83.8 Other specified diseases of biliary tract; K76.0 Fatty (change of) liver, not elsewhere classified; K66.0 Peritoneal adhesions (postprocedural) (postinfection); R79.89 Other specified abnormal findings of blood chemistry; Z56.9 Unspecified problems related to employment; Z59.82 Transportation insecurity; Z59.71 Insufficient health insurance coverage; Z90.710 Acquired absence of both cervix and uterus
CPT/HCPCS: 36415; 74181; 76705; 80053; 83605; 83690; 85025; 87040; 88304; 94010; 96361; 96374; 96375; 99285; A4216; J0360; J0696; J1100; J1171; J2003; J2250; J2270; J2371; J2405; J2543; J2704; J3010; J7030; J7120